=== PATIENT | female | born 1950 | race African-American/Black ===

== ENCOUNTER 2020-06-11 04:32 | Emergency (ER) | payer MEDICARE, SELFPAY ==
--- NOTE | ~2020-06-11 | XR_ITS ---
XR chest 1V portable DATE: 06/11/2020 05:06 INDICATION: Cough, shortness of breath TECHNIQUE: Portable AP chest on 06/11/2020 at 0506 hours COMPARISON: None FINDINGS: Normal heart size. Aortic arch calcification. No hilar or mediastinal enlargement. No pleur al effusion or pneumothorax. There are bilateral patchy infiltrates in the mid and to a greater extent lower lung zones. IMPRESSION: Bilateral patchy mid and lower lung zone infiltrates, suggesting patchy bilateral pneumon ia Reviewed, dictated and finalized at location A. IMPRESSION: Bilateral patchy mid and lower lung zone infiltrates, suggesting pa tchy bilateral pneumonia
--- NOTE | 2020-06-11 04:45 | ED.SOB ---
HPI - SOB/Dyspnea General Chief Complaint: Shortness of Breath/Dyspnea Stated Complaint: cough, sob Time Seen by Provider: 06/11/20 04:44 History of Present Illness HPI Narrative: Patient presents to the ED with nonstop cough. She has been coughing for 2 days. She had a temperature of 100. She said she had chills and sweats. She did not hear any wheezes. She has a history of hypertension, hypercholesterolemia, type 2 diabetes. Her only surgery is a recent right rotator cuff. MD elicited complaint: shortness of breath and cough Pertinent past history: other (None) Onset (ago): day(s) Timing: constant Severity: moderate Known history of: diabetes and other (Hypertension and hypercholesterolemia) Associated symptoms: cough Related Data Home Medications Medication Instructions Recorded Confirmed ezetimibe 10 mg PO DAILY 06/11/20 hydrochlorothiazide 12.5 mg PO DAILY 06/11/20 metformin 500 mg PO DAILY 06/11/20 Allergies Allergy/AdvReac Type Severity Reaction Status Date / Time clindamycin Allergy Unknown Verified 06/11/20 04:52 codeine Allergy Unknown Verified 06/11/20 04:52 silver Allergy Unknown Verified 06/11/20 04:50 Xsdpyke-Ykh-Zjv Reductase Allergy Unknown Verified 06/11/20 04:50 Inhibitor Review of Systems Review of Systems: Narrative: CONSTITUTIONAL: She reports fever, chills, and sweats. EYES: Denies visual changes, redness, or discharge. ENT: Denies rhinorrhea, congestion, sore throat, or otalgia. CARDIOVASCULAR: Denies chest pain, palpitations, or edema. RESPIRATORY: She has cough and dyspnea. GASTROINTESTINAL: Denies abdominal pain, nausea, vomiting, or diarrhea. GENITOURINARY: Denies dysuria or hematuria. SKIN: Denies rash or itching. MUSCULOSKELETAL: Right shoulder pain NEUROLOGIC: Denies headache, numbness, or weakness. All systems reviewed & are unremarkable except as noted in HPI and below PMFSH Surgical History Surgical History History of rotator cuff surgery Exam Narrative: Exam Narrative: GENERAL: Well-appearing, well-nourished, and in no acute distress. Recurrent shallow cough. HEAD: Normocephalic, atraumatic. EYES: PERRLA and EOMI. ENT: Nares clear, no rhinorrhea or epistaxis. Mucous membranes moist. NECK: Supple. CHEST: Clear to auscultation. No respiratory distress. No wheezes HEART: Regular rate and rhythm. No murmur heard. Normal peripheral pulses. ABDOMEN: Soft, nontender, nondistended, normal active bowel sounds. EXTREMITIES: Normal range of motion. No edema. SKIN: Warm, dry, no rash. NEURO: No focal deficits. Alert and oriented x3. PSYCH appears anxious. Course Reevaluation(s) Reevaluation #1: Went back to the room to tell the patient that the x-ray looks likes COVID. Since her oxygen is fine she can be discharged. I ordered [place] not only for her right shoulder pain but also to suppress the cough. She can call her primary care physician to get the results of her COVID testing. She needs to continue quarantine for 14 days. Date: 06/11/20 Time: 05:24 Vital Signs Vital signs: Vital Signs Temperature 99 F 06/11/20 04:47 Pulse Rate 91 06/11/20 04:47 Respiratory Rate 22 H 06/11/20 04:47 Blood Pressure 152/83 H 06/11/20 04:47 Pulse Oximetry 99 06/11/20 04:47 Temperature 99 F 06/11/20 04:47 Pulse Rate 80 06/11/20 05:09 Respiratory Rate 22 H 06/11/20 04:47 Blood Pressure 152/83 H 06/11/20 04:47 Pulse Oximetry 99 06/11/20 05:09 MDM - SOB/Dyspnea Medical Records Attestation: I reviewed the patient's medical records. Lab Data Attestation: I reviewed the patient's lab results. Result diagrams: 06/11/20 04:54 06/11/20 04:54 Labs: Lab Results 06/11/20 06/11/20 Range/Units 04:54 04:54 WBC 4.1 L (4.5-10.0) K/mm3 RBC 5.00 (4.2-5.4) M/mm3 Hgb 13.1 (12.0-15.0) g/dL Hct 40.0 (37.0-47.0) % MCV 80.0 (80-100) fl MCH 26.2 (2
[2020-06-11 04:47] VITALS: BP 152/83; PULSE 91; RESP 22; TEMP 37.2; O2SAT 99
[2020-06-11 05:04] LABS: Basophils Percent Auto 0.5 % (0.2-1.2); Eosinophils Percent Auto 0.2 % (0-4.4); Hemoglobin 13.1 g/dL (12.0-15.0); Immature Granulocyte Absolute 0.01 K/mm3 (0.00-0.031); Immature Granulocyte Percent A 0.2 % (0-0.5); Immature Platelet Fraction Pct 2.2 % (0.9-11.2); Lymphocytes Absolute Auto 2.05 K/mm3 (0.9-3.2); Lymphocytes Percent Auto 49.5 % (18.3-44.2); Mean Corpuscular HGB Conc 32.8 g/dl (32-36); Mean Corpuscular Hemoglobin 26.2 pg (26-34); Mean Platelet Volume 10.6 fl (7.4-10.4); Monocytes Absolute Auto 0.4 K/mm3 (0.1-0.6); Monocytes Percent Auto 9.4 % (2.6-8.5); Neutrophils Absolute Auto 1.7 K/mm3 (1.3-6.7); Neutrophils Percent Auto 40.2 % (45.5-73.1); Platelet Count Result 164 k/mm3 (150-375); Red Cell Distribution Width 13.6 % (11.5-14.5); White Blood Count 4.1 K/mm3 (4.5-10.0)
[2020-06-11 05:09] VITALS: PULSE 80; O2SAT 99
--- NOTE | 2020-06-11 05:14 | PC.NURSE ---
Per patient's PCP, patient cannot receive oxycodone.
[2020-06-11 05:16] LABS: Alanine Aminotransferase 24 U/L (4-35); Albumin Level 4.6 g/dL (3.5-5.1); Alkaline Phosphatase 68 U/L (38-126); Anion Gap 15.5 mmol/L (7-16); Aspartate Amino Transferase 41 U/L (14-36); Bilirubin,Total 0.6 mg/dL (0.2-1.3); Blood Urea Nitrogen 17 mg/dL (7-17); Calcium 9.4 mg/dL (8.4-10.2); Carbon Dioxide 24 mmol/L (22-30); Chloride 101 mmol/L (98-107); Estimated CRCL calculation 50 ml/min; Estimated Glomerular Filt Rate > 60; Glucose 100 mg/dL (65-105); Potassium 3.5 mmol/L (3.4-5.0); Sodium 137 mmol/L (137-145)
[2020-06-11 05:17] LABS: Atypical Lymphocytes Present; Large Platelets Present; Platelet Estimate Adequate (Adequate)
[2020-06-11 05:19] LABS: Poikilocytosis 1+ (NORMAL)
--- NOTE | 2020-06-11 05:47 | PC.NURSE ---
MOHIT espinozaed administration of [place].
--- NOTE | 2020-06-11 05:51 | PC.NURSE ---
Patient being monitored after receiving Adin.
[2020-06-11 06:03] VITALS: TEMP 37.2
[2020-06-11 06:11] VITALS: BP 128/73; PULSE 87; RESP 17; TEMP 37.3; O2SAT 98
== END 2020-06-11 06:19 | disposition home or self-care (01) ==
PROVIDERS: Emergency Provider Emergency Medicine; PCP Family Medicine
DX: U07.1 COVID-19 (principal); J40 Bronchitis, not specified as acute or chronic; I10 Essential (primary) hypertension; E11.9 Type 2 diabetes mellitus without complications; Z79.84 Long term (current) use of oral hypoglycemic drugs; E78.5 Hyperlipidemia, unspecified
CPT/HCPCS: 36415; 71045; 80053; 85025; 85055; 99283; A9270

== ENCOUNTER 2020-06-12 10:49 | Observation (INO) | payer MEDICARE, SELFPAY ==
[2020-06-12] VITALS (9 sets, daily range): BP systolic 115–139; BP diastolic 62–86; PULSE 85–95; RESP 14–27; TEMP 36.6–37.3; O2SAT 97–100; BMI 25.6
--- NOTE | ~2020-06-12 | XR_ITS ---
EXAMINATION: XR chest 1V portable INDICATION: Cough, COVID TECHNIQUE: Portable AP chest at 1120 hours COMPARISON: 06/11/2020 FINDINGS: Airspace opacities of the mid and lower lung zones persist without significant change. Ther e is no pleural effusion or pneumothorax. The cardiomediastinal silhouette is normal. IMPRESSION: 1. Airspace opacities of the mid and lower lung zones compatible with COVID pneumonia. Reviewed, dictated and finalized at location A. IMPRESSION: 1. Airspace opacities of the mid and lower lung zones compatible with COVID pne umonia.
--- NOTE | 2020-06-12 11:02 | ECG_ITS ---
Measurements Intervals [place] Rate: 92 P: -7 FL: 157 QRS: 19 QRSD: 87 T: -7 QT: 357 QTc: 442 Interpretive Statements SINUS RHYTHM CANNOT RULE OUT SEPTAL INFARCT, AGE INDETERMINATE BORDERLINE ST-T WAVE ABNORMALITY- ANTEROLAT/INF LEADS BASELINE ARTIFACT- I, II, III, AVR, AVL, AVF ABNORMAL ECG Electronically Signed On 06-12-2020 11:11:49 CDT by Aldo Chand D.O.
[2020-06-12 11:29] LABS: Basophils Percent Auto 0.6 % (0.2-1.2); Hematocrit 39.3 % (37.0-47.0); Hemoglobin 12.9 g/dL (12.0-15.0); Immature Granulocyte Absolute 0.03 K/mm3 (0.00-0.031); Immature Granulocyte Percent A 0.6 % (0-0.5); Lymphocytes Absolute Auto 1.99 K/mm3 (0.9-3.2); Mean Corpuscular HGB Conc 32.8 g/dl (32-36); Mean Corpuscular Hemoglobin 26.5 pg (26-34); Mean Corpuscular Volume 80.9 fl (80-100); Mean Platelet Volume 10.7 fl (7.4-10.4); Monocytes Absolute Auto 0.4 K/mm3 (0.1-0.6); Monocytes Percent Auto 7.5 % (2.6-8.5); Neutrophils Absolute Auto 2.7 K/mm3 (1.3-6.7); Neutrophils Percent Auto 52.3 % (45.5-73.1); Platelet Count Result 171 k/mm3 (150-375); Red Blood Count 4.86 M/mm3 (4.2-5.4); Red Cell Distribution Width 13.5 % (11.5-14.5); White Blood Count 5.1 K/mm3 (4.5-10.0)
[2020-06-12] MEDS: ALBUTEROL SULFATE (*SP) INHALER 1 PUFF (11:36)
[2020-06-12] MEDS: ALBUTEROL SULFATE (*SP) AEROSOL 1 PUFF 2 PUFF INHALATION (11:36)
[2020-06-12 11:41] LABS: Lactic Acid Reflex 3.1 mmol/L (0.7-2.1)
[2020-06-12 11:42] LABS: Prothrombin Time 12.4 Seconds (11.1-14.7)
[2020-06-12 11:43] LABS: Partial Thromboplastin Time 27.3 SECONDS (22.3-36.8)
[2020-06-12 11:45] LABS: Alanine Aminotransferase 27 U/L (4-35); Albumin Level 4.5 g/dL (3.5-5.1); Alkaline Phosphatase 79 U/L (38-126); Aspartate Amino Transferase 53 U/L (14-36); Bilirubin,Total 0.6 mg/dL (0.2-1.3); Blood Urea Nitrogen 13 mg/dL (7-17); CRP 2.7 mg/dL (<1.0); Calcium 9.2 mg/dL (8.4-10.2); Carbon Dioxide 28 mmol/L (22-30); Chloride 97 mmol/L (98-107); Estimated CRCL calculation 54 ml/min; Estimated Glomerular Filt Rate > 60; Glucose 94 mg/dL (65-105); Sodium 136 mmol/L (137-145)
--- NOTE | 2020-06-12 11:47 | ED.SOB ---
HPI - SOB/Dyspnea General Chief Complaint: Shortness of Breath/Dyspnea Stated Complaint: SOB Time Seen by Provider: 06/12/20 10:51 Source: patient Mode of arrival: EMS Limitations: no limitations History of Present Illness HPI Narrative: Patient with diabetes, hypertension, and hypercholesterolemia presents for evaluation of continual coughing and feelings of shortness of breath for 3 days. Patient states she was seen in emergency department yesterday and was informed that she is positive for COVID. Patient states that her daughter and son-in-law whom she lives with are also positive for COVID. Patient states that she was not able to sleep all last night due to feeling short of breath when laying flat so she had to sleep sitting up in the recliner. Patient states that her persistent cough is causing her to have worsening body aches. Patient states she is confused as to whether she can take for her symptoms that she has been taking Robitussin as well as taking medication given to her yesterday in this ER but she still feels very ill. Patient reports that her fevers have been low-grade. She states that her symptoms first began last Tuesday with a low-grade fever and body aches. Patient denies chest pain, nausea, vomiting, diarrhea. Related Data Home Medications Medication Instructions Recorded Confirmed ezetimibe 10 mg PO DAILY 06/11/20 hydrochlorothiazide 12.5 mg PO DAILY 06/11/20 metformin 500 mg PO DAILY 06/11/20 colestipol PO 06/12/20 06/12/20 Allergies Allergy/AdvReac Type Severity Reaction Status Date / Time codeine Allergy Mild Itching Verified 06/12/20 11:08 clindamycin Allergy Unknown Verified 06/12/20 11:08 silver Allergy Unknown Verified 06/12/20 11:08 Ojegnvs-Bpl-Fvq Reductase Allergy Unknown Verified 06/12/20 11:08 Inhibitor Review of Systems Review of Systems: Narrative: CONSTITUTIONAL: Reports low-grade fever, chills, or sweats. EYES: Denies visual changes, redness, or discharge. ENT: Denies rhinorrhea, congestion, sore throat, or otalgia. CARDIOVASCULAR: Denies chest pain, palpitations, or edema. RESPIRATORY: Reports cough or dyspnea. GASTROINTESTINAL: Denies abdominal pain, nausea, vomiting, or diarrhea. GENITOURINARY: Denies dysuria or hematuria. SKIN: Denies rash or itching. MUSCULOSKELETAL: Denies back pain, joint pain, or myalgia. NEUROLOGIC: Denies headache, numbness, dizziness, or weakness. PSYCHIATRIC: Denies anxiety or depression. [facility] Social History Social History Gender identity (if verbalized by the patient): Female Exam Narrative: Exam Narrative: GENERAL: Patient appears as if she is is ill and uncomfortable, well-nourished, is not diaphoretic. HEAD: Normocephalic, atraumatic. EYES: PERRLA and EOMI. ENT: Nares clear, no rhinorrhea or epistaxis. Mucous membranes moist. Oropharynx without tonsillar hypertrophy exudate or other lesions. Bilateral TMs pearly alves nonbulging NECK: Supple. No adenopathy or masses. No carotid bruits or JVD CHEST: Persistent dry cough noted during exam clear to auscultation.No wheezes rales or rhonchi. Patient with mild tachypnea. HEART: Regular rate and rhythm. No murmur heard. Normal peripheral pulses. EXTREMITIES: Normal range of motion. No edema. SKIN: Warm, dry, no rash. NEURO: No focal deficits. Alert and oriented x3. PSYCH: Normal mood and affect. Course Vital Signs Vital signs: Vital Signs Temperature 98.4 F 06/12/20 11:03 Pulse Rate 88 06/12/20 11:03 Respiratory Rate 27 H 06/12/20 11:03 Blood Pressure 127/76 06/12/20 11:03 Pulse Oximetry 97 06/12/20 11:03 Temperature 98.4 F 06/12/20 11:03 Pulse Rate 88 06/12/20 12:30 Respiratory Rate 17 06/12/20 12:30 Blood Pressure 115/70 06/12/20 12:30 Pulse Oximetry 100 06/12/20 12:30 MDM - SOB/Dyspnea MDM Narrative Medical decision making narrative: Patient feels improvement in her discomfort and feelings of shortness of breath with 2L nasal estrella
[2020-06-12] MEDS: BENZONATATE 100 MG CAPSULE 200 MG PO (11:57)
[2020-06-12 12:59] LABS: Lactate Dehydrogenase 853 U/L (313-618)
[2020-06-12 13:00] LABS: D Dimer 0.49 ug/mL (<0.48)
--- NOTE | 2020-06-12 14:00 | PM.IMHP ---
H&P: HPI History of Present Illness Date/Time: 06/12/20 14:00 Chief complaint: Shortness of breath. Narrative: Alondra Lopes is a 69-year-old female with hypertension, dyslipidemia, and type 2 diabetes who presented to the emergency department earlier today via EMS from home with complaints of shortness of breath. Recently she moved in with her daughter and son-in-law, and both were positive for COVID-19 when tested 10 to 12 days ago. Over the past weekend, perhaps 5 or 6 days ago, she reports a gradual onset of multiple symptoms including mild sinus congestion, low-grade fever to 100?, chills, sweats, dry, and a dry, nagging cough. She was seen in the emergency department in the senior electrical controls engineer hours yesterday, on June 11, and she was found to have bilateral pulmonary infiltrates and she was discharged home as her labs were really unremarkable and she had no oxygen requirement. I believe she was called yesterday and was told that she was positive for COVID-19, however she is uncertain as to where the test was taken and there are no results in our computer. After she received a phone call reporting that she was positive for COVID-19, she admittedly felt very anxious and began to feel increasingly short of breath. Unfortunately, she continues to have and unrelenting cough and shortness of breath, to the point where she can hardly even sleep at night without propping herself up due to the shortness of breath. Due to the cough, she is now experiencing aching throughout her ribs and chest. Robitussin has not provided her with much benefit. she has been hungry however has not been eating much due to decreased since in taste. She has not had nausea, vomiting, or diarrhea but it sounds like she will occasionally gag while coughing. Review of Systems Review of Systems: Narrative: Twelve systems were reviewed with pertinent positives and negatives as per HPI. Mild headache. No lightheadedness or dizziness. No exertional chest pain or shortness of breath no history of coronary disease. She denies lower extremity edema and history of venous thromboembolism. No rash or lesion. She does not check her glucose often, but states her fasting levels are never over 100. Except as documented, all other systems were reviewed and are negative. [facility] Past Medical History Medical History (Updated 06/12/20 @ 15:29 by Radha Solano PA-C) Dyslipidemia Essential hypertension Type 2 diabetes mellitus Surgical History Surgical History (Updated 06/12/20 @ 15:14 by Radha Solano PA-C) History of repair of right rotator cuff Family History Family History (Updated 06/12/20 @ 15:14 by Radha Solano PA-C) Mother Dementia Father Type 2 diabetes mellitus Social History Social History (Updated 06/12/20 @ 15:15 by Radha Solano PA-C) Social History: The patient recently moved to [place], is living with her daughter, son-in-law, and 2 grandsons. She is a retired employment specialist. She is lifelong nonsmoker and denies alcohol and illicit substance use. She designates her 3 daughters as her surrogate decision makers and she wishes to be a full code. Meds Home Medications and Allergies Home Medications Medication Instructions Recorded Confirmed Type ezetimibe 10 mg PO DAILY 06/11/20 History hydrochlorothiazide 12.5 mg PO DAILY 06/11/20 History hydrocodone-acetaminophen [[place]] 1 tablet PO Q6H PRN #10 tablet 06/11/20 Rx metformin 500 mg PO DAILY 06/11/20 History colestipol PO 06/12/20 06/12/20 History Allergies Allergy/AdvReac Type Severity Reaction Status Date / Time codeine Allergy Mild Itching Verified 06/12/20 11:08 clindamycin Allergy Unknown Verified 06/12/20 11:08 silver Allergy Unknown Verified 06/12/20 11:08 Aqqfiak-Bxj-Soh Reductase Allergy Unknown Verified 06/12/20 11:08 Inhibitor Vital Signs Vital Signs - 24 hr 06/12/20 11:03 06/12/20 11:06 08
[2020-06-12 14:26] LABS: Reflex Lactic Acid Yes or No Add Lactic
[2020-06-12 14:59] LABS: Lactic Acid 2.7 mmol/L (0.7-2.1)
[2020-06-12] MEDS: POTASSIUM CHLORIDE 20 MEQ PACKET (FOR LIQUID) 40 MEQ PO (15:00)
--- NOTE | 2020-06-12 16:22 | ADMGEN ---
This patient, Alondra Lopes, was admitted to [facility] Surg Room 327-01. Patient/family oriented to hospital policies and general routines including ID bracelet, bed and alarms, visiting hours, pain management, procedures, bathroom and other care routines, personal items, smoking policy, room service/diet, and visiting hours. Valuables list has been completed. Information on how to activate the Rapid Response Team has been discussed. Patient/Family are encouraged to report perceived risks to care and to ask questions if they do not understand what they are told or what they should do.
[2020-06-12 17:43] LABS: Glucose Point of Care 129 (65-105)
[2020-06-12 21:50] LABS: Glucose Point of Care 182 (65-105)
[2020-06-12] MEDS: guaiFENesin 600 MG/DEXTROMETHORPHAN 30 MG SR TAB 12 HR 1 TAB PO (22:00)
[2020-06-13] VITALS: BP 115/70; PULSE 86; RESP 16; TEMP 36.8; O2SAT 100
[2020-06-13 04:00] VITALS: BP 134/76; PULSE 79; RESP 18; TEMP 36.6; O2SAT 97
[2020-06-13 06:15] LABS: Basophils Percent Auto 0.3 % (0.2-1.2); Hematocrit 35.8 % (37.0-47.0); Hemoglobin 11.6 g/dL (12.0-15.0); Immature Granulocyte Absolute 0.02 K/mm3 (0.00-0.031); Immature Granulocyte Percent A 0.7 % (0-0.5); Lymphocytes Absolute Auto 0.76 K/mm3 (0.9-3.2); Mean Corpuscular HGB Conc 32.4 g/dl (32-36); Mean Corpuscular Hemoglobin 26.2 pg (26-34); Mean Platelet Volume 10.6 fl (7.4-10.4); Monocytes Absolute Auto 0.2 K/mm3 (0.1-0.6); Monocytes Percent Auto 6.5 % (2.6-8.5); Neutrophils Absolute Auto 1.9 K/mm3 (1.3-6.7); Neutrophils Percent Auto 66.5 % (45.5-73.1); Platelet Count Result 175 k/mm3 (150-375); Red Blood Count 4.42 M/mm3 (4.2-5.4); Red Cell Distribution Width 13.2 % (11.5-14.5); White Blood Count 2.9 K/mm3 (4.5-10.0)
[2020-06-13 06:24] LABS: D Dimer 0.97 ug/mL (<0.48)
[2020-06-13 06:29] LABS: Hemoglobin A1C 5.5 % (<5.7)
[2020-06-13 06:56] LABS: Potassium 3.4 mmol/L (3.4-5.0)
[2020-06-13 07:01] LABS: Alanine Aminotransferase 21 U/L (4-35); Alkaline Phosphatase 63 U/L (38-126); Anion Gap 13.4 mmol/L (7-16); Aspartate Amino Transferase 44 U/L (14-36); Bilirubin,Total 0.4 mg/dL (0.2-1.3); Blood Urea Nitrogen 13 mg/dL (7-17); CRP 4.7 mg/dL (<1.0); Calcium 8.6 mg/dL (8.4-10.2); Carbon Dioxide 26 mmol/L (22-30); Chloride 102 mmol/L (98-107); Estimated CRCL calculation 61 ml/min; Estimated Glomerular Filt Rate > 60; Glucose 149 mg/dL (65-105); Lactate Dehydrogenase 816 U/L (313-618); Magnesium 2.2 mg/dL (1.6-2.3); Sodium 138 mmol/L (137-145)
[2020-06-13 08:26] LABS: Glucose Point of Care 126 (65-105)
[2020-06-13] MEDS: CHOLECALCIFEROL 1,000 UNIT TABLET 2000 UNITS PO (08:58)
[2020-06-13] MEDS: COLESTIPOL HCL 1 GM TABLET PO (08:58)
[2020-06-13] MEDS: THERAPEUTIC MULTIVITAMINS/MINERALS TAB (*BKC) 1 TABLET PO (08:59)
[2020-06-13] MEDS: EZETIMIBE 10 MG TABLET PO (08:59)
[2020-06-13] MEDS: guaiFENesin 600 MG/DEXTROMETHORPHAN 30 MG SR TAB 12 HR 1 TAB PO ×2 (08:59→20:48)
[2020-06-13] MEDS: hydroCHLOROthiazide 12.5 MG CAPSULE PO (08:59)
[2020-06-13 09:00] VITALS: BP 123/62; PULSE 74; RESP 20; TEMP 36.6; O2SAT 96
[2020-06-13] MEDS: ENOXAPARIN 40 MG/0.4 ML SYRINGE SUB-Q (12:08)
[2020-06-13 13:00] VITALS: BP 122/66; PULSE 88; RESP 18; TEMP 36.9; O2SAT 97
[2020-06-13 13:19] LABS: Glucose Point of Care 145 (65-105)
[2020-06-13] MEDS: ACETAMINOPHEN 325 MG TABLET 650 MG PO (14:29)
[2020-06-13] MEDS: BENZONATATE 100 MG CAPSULE PO ×2 (14:29→17:44)
--- NOTE | 2020-06-13 16:36 | PM.IMPN ---
Progress Note: A&P Assessment and Plan (1) Pneumonia due to 2019 novel coronavirus: Code(s): U07.1 - COVID-19; J12.89 - Other viral pneumonia Status: Acute Assessment and Plan: Tested positive for COVID-19 at outside facility on 06/11/2020. CXR shows airspace opacity to the mid and lower lung zones compatible with COVID pneumonia. Inflammatory markers are mildly elevated. She has been weaned to room air and is maintaining adequate oxygenation. Continue dexamethasone which was initiated given her oxygen requirement. It has been discussed that this may not be very beneficial given her mild course of disease. Monitor glucose closely. continue supportive care with albuterol MDI, acetaminophen, Mucinex, and Tessalon Perles. continue to monitor oxygen saturation. Supplemental oxygen as needed with goal saturation 92% or above. Continue isolation precautions Hopeful discharge tomorrow pending improvement of significant shortness of breath and cough Trend inflammatory markers (2) Type 2 diabetes mellitus: Qualifiers: Diabetes mellitus terminal operator insulin use: without terminal operator use Diabetes mellitus complication status: without complication Qualified Code(s): E11.9 - Type 2 diabetes mellitus without complications Code(s): E11.9 - Type 2 diabetes mellitus without complications Status: Acute Assessment and Plan: A1c is 5.5. Blood sugars have been well controlled. Hold metformin while hospitalized. Initiate sliding scale insulin, Accu-Cheks, and hypoglycemic protocol. . (3) Essential hypertension: Code(s): I10 - Essential (primary) hypertension Status: Acute Assessment and Plan: Blood pressures were reviewed and they are well controlled. Continue antihypertensives and monitor daily. (4) Dyslipidemia: Code(s): E78.5 - Hyperlipidemia, unspecified Status: Acute Assessment and Plan: Continue ezetimibe and colestipol. (5) Hypokalemia: Code(s): E87.6 - Hypokalemia Status: Acute Assessment and Plan: Improved today, potassium is 3.4. Potassium will be replaced and monitored as needed. Subjective Date/time seen: 06/13/20 16:36 Interval history: Date of service: 06/13/2020 she reports she is feeling a bit better today. She continues to endorse constant dry cough. She has had coughing fits which caused her to become short of breath and she has associated abdominal and chest soreness secondary to coughing. At rest, she denies shortness of breath. She does endorse LOPEZ when ambulating short distances. She denies chest pain or palpitations. She denies nausea, vomiting, fever, chills, abdominal pain, weakness, dizziness, or lightheadedness. Her appetite has been fair but she reports she has lost her sense of taste. She has not had a bowel movement in several days. Review of Systems Review of Systems: Narrative: A 12 point review of systems was reviewed with pertinent positives and negatives as per HPI. Exam Narrative: Exam Narrative: Ms. Lopes is A well-nourished 69-year-old female who appears slightly younger than her stated age. She appears comfortable and is in no acute respiratory distress. HR 79, BP 134/76, RR 18, T 98.0?, 97% on 2 L Neuro: awake, alert and oriented x4, speech clear, no focal neuro deficits noted HEENMT: normocephalic, atraumatic, EOMI, sclerae anicteric, moist oral mucosa, tongue midline Neck: supple, no lymphadenopathy Respiratory: diminished breath sounds bilaterally without crackles or wheezes, nonlabored breathing, dry cough Cardio: regular rate, regular rhythm with S1-S2 Abdomen: nondistended, normoactive bowel sounds, soft, nontender to palpation Extremities: no edema, erythema, cyanosis, clubbing, or tenderness to palpation, DP pulses 2+ bilaterally Skin: no rashes or lesions, warm and dry Psych: appropriate mood and affect, judgment and
[2020-06-13 17:00] VITALS: BP 119/61; PULSE 83; RESP 18; TEMP 36.7; O2SAT 98
[2020-06-13] MEDS: INSULIN ASPART (*BKC) 100 UNITS/ML SUB-Q (17:46)
[2020-06-13 19:01] LABS: Glucose Point of Care 205 (65-105)
[2020-06-13 21:31] LABS: Glucose Point of Care 231 (65-105)
[2020-06-13 22:00] VITALS: BP 131/72; PULSE 83; RESP 18; TEMP 36.7; O2SAT 97
[2020-06-14] VITALS: BP 109/61; PULSE 62; RESP 18; TEMP 36.8; O2SAT 97
[2020-06-14 04:00] VITALS: BP 109/66; PULSE 68; RESP 18; TEMP 37.1; O2SAT 97
[2020-06-14 06:40] LABS: Hematocrit 32.8 % (37.0-47.0); Hemoglobin 10.7 g/dL (12.0-15.0); Mean Corpuscular HGB Conc 32.6 g/dl (32-36); Mean Corpuscular Hemoglobin 26.2 pg (26-34); Mean Corpuscular Volume 80.4 fl (80-100); Mean Platelet Volume 10.2 fl (7.4-10.4); Platelet Count Result 202 k/mm3 (150-375); Red Blood Count 4.08 M/mm3 (4.2-5.4); Red Cell Distribution Width 13.2 % (11.5-14.5); White Blood Count 6.8 K/mm3 (4.5-10.0)
[2020-06-14 06:55] LABS: Anion Gap 6 mmol/L (8-16); Blood Urea Nitrogen 15 mg/dL (7-17); CRP 2.2 mg/dL (<1.0); Calcium 8.5 mg/dL (8.4-10.2); Carbon Dioxide 29 mmol/L (22-30); Chloride 104 mmol/L (98-107); Estimated CRCL calculation 54 ml/min; Estimated Glomerular Filt Rate > 60; Glucose 98 mg/dL (65-105); Lactate Dehydrogenase 732 U/L (313-618); Potassium 3.1 mmol/L (3.4-5.0); Sodium 139 mmol/L (137-145)
[2020-06-14 08:00] VITALS: BP 116/68; PULSE 69; RESP 20; TEMP 36.7; O2SAT 97
[2020-06-14] MEDS: COLESTIPOL HCL 1 GM TABLET PO (08:19)
[2020-06-14] MEDS: POTASSIUM CHLORIDE 20 MEQ TABLET 40 MEQ PO (08:19)
[2020-06-14] MEDS: hydroCHLOROthiazide 12.5 MG CAPSULE PO (08:19)
[2020-06-14] MEDS: ENOXAPARIN 40 MG/0.4 ML SYRINGE SUB-Q (08:19)
[2020-06-14] MEDS: DEXAMETHASONE 2 MG TABLET 6 MG PO (08:20)
[2020-06-14] MEDS: CHOLECALCIFEROL 1,000 UNIT TABLET 2000 UNITS PO (08:20)
[2020-06-14] MEDS: EZETIMIBE 10 MG TABLET PO (08:20)
[2020-06-14] MEDS: THERAPEUTIC MULTIVITAMINS/MINERALS TAB (*BKC) 1 TABLET PO (08:20)
[2020-06-14] MEDS: BENZONATATE 100 MG CAPSULE PO ×2 (08:20→12:46)
[2020-06-14] MEDS: guaiFENesin 600 MG/DEXTROMETHORPHAN 30 MG SR TAB 12 HR 1 TAB PO (08:20)
[2020-06-14 08:37] LABS: Glucose Point of Care 85 (65-105)
[2020-06-14 11:46] LABS: Glucose Point of Care 116 (65-105)
[2020-06-14 12:00] VITALS: BP 118/59; PULSE 80; RESP 18; TEMP 37.2; O2SAT 96
[2020-06-14 12:39] LABS: Potassium 3.7 mmol/L (3.4-5.0)
--- NOTE | 2020-06-14 13:40 | PM.DS ---
DS: Admitting Diagnosis Admitting Diagnosis Admitting Diagnosis: Contact with and (suspected) exposure to other viral communicable diseases DS: Discharge Diagnosis Discharge Diagnosis (1) Pneumonia due to 2019 novel coronavirus: Code(s): U07.1 - COVID-19; J12.89 - Other viral pneumonia Status: Acute Assessment and Plan: Tested positive for COVID-19 at outside facility on 06/11/2020. CXR showed airspace opacity to the mid and lower lung zones compatible with COVID pneumonia. Inflammatory markers were mildly elevated but improved. She was initially mildly hypoxic and she was started on dexamethasone given her oxygen requirement. She was weaned to room air and maintained adequate oxygenation. Symptomatic care was provided with albuterol, Mucinex, and Tessalon Perles. Dexamethasone was discontinued at discharge as she was no longer requiring oxygen. Preliminary blood culture showed no growth to date and final cultures will be monitored. She will follow-up with her PCP in 1 week. (2) Type 2 diabetes mellitus: Qualifiers: Diabetes mellitus complication status: without complication Diabetes mellitus intermission coordinator insulin use: without intermission coordinator use Qualified Code(s): E11.9 - Type 2 diabetes mellitus without complications Code(s): E11.9 - Type 2 diabetes mellitus without complications Status: Acute Assessment and Plan: A1c is 5.5. Blood sugars were well controlled. Continue metformin. (3) Essential hypertension: Code(s): I10 - Essential (primary) hypertension Status: Acute Assessment and Plan: Blood pressures were reviewed and they were well controlled. Continue HCTZ. (4) Dyslipidemia: Code(s): E78.5 - Hyperlipidemia, unspecified Status: Acute Assessment and Plan: Continue ezetimibe and colestipol. (5) Hypokalemia: Code(s): E87.6 - Hypokalemia Status: Acute Assessment and Plan: Levels were mildly low, which I suspect is due to decreased oral intake. potassium was replaced in monitor closely. Repeat BMP as an outpatient in 3 days. DS: Summary Hospital Course Reason for hospitalization: Shortness of breath Hospital Course: Date of admission: 06/12/2020 Date of discharge: 06/26/2020 Alondra Lopes is a 69-year-old female with hypertension, dyslipidemia, and type 2 diabetes who presented to the emergency department on 06/12/2020 with complaints of shortness of breath. She had previously tested positive for COVID 19 an outpatient testing facility. Her daughter and son-in-law, who she lives with, were also positive for COVID-19. She was having symptoms for 5 or 6 days prior to presentation , including low-grade fever, chills, sweats, and dry cough. At presentation, vitals stable, 97% on 2 L, WBC 5.1, K 3.0, lactic 3.1, and CXR showing airspace opacity to the mid and lower lung zones compatible with COVID pneumonia. She is admitted to the hospitalist service on 06/12/2020 for further evaluation and management. She was monitored closely and her symptoms improved. She was weaned to room air. Given her symptomatic improvement and stable oxygen requirements, she was determined to no longer require inpatient care. We discussed worrisome signs and symptoms which she should return and she will follow-up with her PCP in 1 week. She was discharged in hemodynamically stable condition on 06/14/2020. Status at Discharge Functional status at discharge: independent ambulation Overall status at discharge: patient is progressing back to baseline Time Spent with Patient Time attestation: Total time spent providing and/or coordinating discharge services: 42 minutes Time spent: Greater than 30 minutes Exam Narrative: Exam Narrative: Ms. Lopes is A well-nourished 69-year-old female. She appears comfortable and is in no acute respiratory distress. HR 68, BP 109/66, R 18, T 98.7?, 97% on room air Neuro: awake, alert and or
== END 2020-06-14 14:35 | disposition home or self-care (01) ==
LOC: ANHED 12:48 → ANH3MEDSUR 13:06
PROVIDERS: Physician Assistant; Admitting Provider Family Medicine; Emergency Provider Emergency Medicine; PCP Family Medicine; Visit Provider Physician Assistant
DX: U07.1 COVID-19 (principal); J12.89 Other viral pneumonia; E11.9 Type 2 diabetes mellitus without complications; I10 Essential (primary) hypertension; E87.6 Hypokalemia; E78.5 Hyperlipidemia, unspecified; R06.02 Shortness of breath; Z79.84 Long term (current) use of oral hypoglycemic drugs
CPT/HCPCS: 36415; 71045; 80048; 80053; 82728; 83036; 83605; 83615; 83735; 84132; 85025; 85027; 85380; 85610; 85730; 86140; 87040; 93005; 96372; 96374; 96375; 96376; 99285; A9270; G0378; J0131; J1100; J1650; J1815; J8540

== ENCOUNTER 2020-06-17 12:23 | Outpatient (CLI) | payer MEDICARE, SELFPAY ==
[2020-06-17 13:18] LABS: Anion Gap 7 mmol/L (8-16); Blood Urea Nitrogen 17 mg/dL (7-17); Calcium 9.1 mg/dL (8.4-10.2); Carbon Dioxide 29 mmol/L (22-30); Chloride 100 mmol/L (98-107); Estimated Glomerular Filt Rate > 60; Glucose 105 mg/dL (65-105); Potassium 3.1 mmol/L (3.4-5.0); Sodium 136 mmol/L (137-145)
== END 2020-06-17 12:24 | disposition home or self-care (01) ==
PROVIDERS: PCP Family Medicine; Referring Provider Family Medicine; Visit Provider Physician Assistant
DX: E87.6 Hypokalemia (principal)
CPT/HCPCS: 36415; 80048

== ENCOUNTER → 2020-09-22 17:27 | Outpatient (CLI) | payer MEDICARE, SELFPAY ==
--- NOTE | ~2020-09-22 | XR_ITS ---
EXAMINATION: XR sacrum coccyx min 2V DATE: 09/22/2020 17:45 INDICATION: Tailbone pain TECHNIQUE: Frontal, angled frontal and lateral views of the sacrum and coccyx were obtained. COMPARISON: None. FINDINGS: Alignment is normal. Sacral arches are intact. No fracture. Mild osteoarthritis at bilateral hip and sacroiliac joints. Mild osteitis pubis. Multiple phleboliths in the pelvis. Mild lumbar spondylosis. IMPRESSION: 1. Mild degenerative skeletal changes in the lower lumbar spine and pelvis. No acute osseous abnormal ity. Reviewed, dictated and finalized at location . [employer] IMPRESSION: 1. Mild degenerative skeletal changes in the lower lumbar spine and pelvis. No acute osseous abnormality.
== END ==
PROVIDERS: PCP Family Medicine; Visit Provider Family Medicine
DX: M53.3 Sacrococcygeal disorders, not elsewhere classified (principal)
CPT/HCPCS: 72220

== ENCOUNTER → 2021-04-07 08:49 | Outpatient (CLI) | payer MEDICARE, SELFPAY ==
--- NOTE | ~2021-04-07 | XR_ITS ---
EXAMINATION: XR hip LT min 2V DATE: 04/07/2021 09:12 INDICATION: Left hip pain. TECHNIQUE: 2 views of left hip were obtained. COMPARISON: None. FINDINGS: Bone alignment is normal. No fracture. There is mild left hip osteoarthritis. IMPRESSION: 1. Mild left hip osteoarthritis. Reviewed, dictated and finalized at location A.
== END ==
PROVIDERS: PCP Family Medicine; Visit Provider Family Medicine
DX: M16.12 Unilateral primary osteoarthritis, left hip (principal)
CPT/HCPCS: 73502